=== PATIENT | female | born 1965 | race Caucasian/White ===

== ENCOUNTER 2023-07-23 19:37 | Emergency (ER) | payer OTHER, SELFPAY ==
[2023-07-23 19:43] VITALS: BP 164/104
[2023-07-23 20:22] LABS: Glucose - Point of Care 466 mg/dl (70-99)
[2023-07-23] MEDS: NSS 1000 IV ×3 (20:25→23:29)
[2023-07-23 20:33] LABS: % Basophils 0.9 % (0-2); % Eosinophils 1.9 % (0-6); % Immature Granulocytes 0.4 % (0-0.5); % Lymphocytes 25.1 % (20.5-51.1); % Monocytes 7.5 % (1.7-9.3); % Neutrophils 64.2 % (42.2-75.2); Absolute Basophils 0.1 10^3/uL (0-0.2); Absolute Eosinophils 0.2 10^3/uL (0-0.7); Absolute Lymphocytes 2.2 10^3/uL (1.2-3.4); Absolute Monocytes 0.7 10^3/uL (0.1-0.6); Absolute Neutrophils 5.7 10^3/uL (1.4-6.5); Hematocrit 42.4 % (37.0-47.0); Hemoglobin 15.2 g/dL (12.0-16.0); Mean Corp Hgb Conc. 35.8 g/dL (33.0-37.0); Mean Corpuscular Hgb 29.1 pg (27.0-31.0); Mean Corpuscular Volume 81.1 fL (81.0-99.0); Mean Platelet Volume 11.6 fL (7.4-10.4); Nucleated Red Blood Cells % 0 %; Platelet Count 332 10^3/uL (130-400); Red Blood Cell Count 5.23 10^6/uL (4.20-5.40); Red Cell Dist. Width 12.9 % (11.5-14.5); Venous Blood Gas B.E. -2.3 mmol/L (-4 to +4); Venous Blood Gas HCO3 22.5 mmol/L (22-27); Venous Blood Gas pCO2 38 mmHg (35-48); Venous Blood Gas pH 7.38 (7.32-7.43); Venous Blood Gas pO2 85 mmHg (30-50); White Blood Cell Count 8.9 10^3/uL (4.8-10.8)
[2023-07-23 20:50] LABS: ALT (SGPT) 33 U/L (0-35); AST (SGOT) 26 U/L (14-36); Albumin 4.9 g/dl (3.5-5.0); Alkaline Phosphatase 113 U/L (38-126); Blood Urea Nitrogen 11 mg/dl (7-17); Calcium 9.7 mg/dl (8.4-10.2); Carbon Dioxide 19 mmol/L (22-30); Chloride 95 mmol/L (98-107); Glucose 492 mg/dl (70-99); Magnesium 1.7 mg/dl (1.6-2.3); Potassium 3.7 mmol/L (3.5-5.1); Sodium 128 mmol/L (135-145); Total Bilirubin 0.8 mg/dl (0.2-1.3); Total Protein 7.7 g/dl (6.3-8.2); eGFR > 60.00
[2023-07-23 20:56] LABS: B-Hydroxybutyrate 3.37 mmol/L (0.02-0.27)
[2023-07-23] MEDS: NOVOLOG vial 5 UNITS SC (21:19)
[2023-07-23 21:56] VITALS: BP 151/76
--- NOTE | 2023-07-23 22:15 | ED.GENMED ---
Addendum entered and electronically signed by Aydin Keith MD 07/26/23 08:49:
Called to follow-up with patient: discussed results including normal C-peptide, significantly elevated hemoglobin A1c. She has already followed up with primary doctor and has follow-up scheduled with endocrinology. Her sugars are still running
high, was prescribed Lantus by PCP which she is starting. Strong follow-up plan in place. All questions answered.
Original Note:
History of Present Illness
General
Chief Complaint: Blood Sugar Problem
Source: patient
Exam Limitations: none
Time Seen by Provider: 07/23/23 20:05
Nursing documentation reviewed up to this point in time: agreed with
Travel History
Have you had any contact with someone who has COVID-19?: Yes
Comment: patient
Do you have any symptoms of coronavirus? Fever > 100 degrees, chills, cough, shortness of breath, sore throat, loss of taste or smell, muscle aches, or headache?: No
History of Present Illness
History of Present Illness:
58-year-old female with a history of hypertension, GERD, hypothyroidism who presents to the emergency room for polyuria, polydipsia, found to have new onset diabetes by PCP today. 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 She says that for the past
few weeks she has had polyuria and polydipsia. She has had occasional palpitations. She has been trying to drink plenty of fluids but today finally went to see her primary doctor to be evaluated for this. She had outpatient lab work that showed a
blood glucose greater than 500. She was prescribed metformin 500 mg and took one dose earlier today and she was given a glucometer. She checked her blood glucose and it seemed to be moving the right direction after metformin she says it had
decreased to the 300s however after she ate this evening and once again shot up to greater than 500 and so she came to the emergency room to be assessed. Aside from polyuria polydipsia she did have some nausea and episodes of vomiting today
although this seems to resolve. She has any abdominal pain. She denies any other complaints today. She denies any known history of diabetes.
Past History
Past History
ED Past Medical History: HTN, Hypothyroidism and Psychiatric
ED Past Surgical History: Urological and Other (Hernia repair at age 2)
Social History
Tobacco: Non-smoker
Alcohol: Occasional
Drug: None
Personal:
Living: with family
Employment: Employed ( ICU)
Family History
Family History: Other (Noncontributory)
Review of Systems
Review of Systems
All Other Systems: ROS reviewed and negative except as documented in HPI and ROS
Constitutional: Reports fatigue; Denies fever or chills
EENT: Denies sore throat
Respiratory: Denies cough or trouble breathing
Cardiac: Reports palpitations; Denies chest pain or diaphoresis
ABD/GI: Reports nausea and vomiting; Denies abdominal pain
: Denies flank pain
Musculoskeletal: Denies neck pain or back pain
Neurological: Denies dizzy, headache, weakness or numbness
Endocrine: Reports polyuria and polydipsia
Phy Exam
Physical Exam
Physical Exam:
General: Awake, alert, oriented x3; no acute distress
Head: Normocephalic, atraumatic
Eyes: Conjunctiva normal, sclera anicteric
Throat: Airway intact, slightly dry mucous membranes
Neck: Trachea midline, supple without meningismus
Lungs: Clear to auscultation bilaterally, no wheezing, rales, rhonchi
Heart: Tachycardia with regular rhythm, no murmurs, gallops, or rubs
Abd: Soft, non distended, nontender
Neuro: Cranial nerves grossly intact, speech fluid
Skin: no rash
Extremities: No edema in extremities, warm and well-perfused
Scores
Heart Failure Risk
Heart Failure Risk Score: Not Applicable
Heart Score for Chest Pain Patients
STEMI patient?: Not applicable
Withdrawal Assessment of Alcohol
Withdrawal Assessment Completed?: Not applicable
Course
Orders/Labs/Results
Orders:
Orders
07/23/23 20:09
Bedside Glucose- Treatment ONCE
0.9% Sodium Chloride 1000 ml [Nss] 1,000 ml IV BOLUS
07/23/23 20:24
Acetone [B-Hydroxybutyrate] Urgent
Complete Blood Count/With Diff Urgent
Comprehensive Metabolic Panel Urgent
Glycohemoglobin (HgbA1c) Urgent
Magnesium Urgent
Venous Blood Gas Urgent
%Oxygen/Room Air: 98
07/23/23 21:04
0.9% Sodium Chloride 1000 ml [Nss] 1,000 ml IV BOLUS
07/23/23 21:09
Add On- LAB Urgent
Tests Added?: [id number]
Insulin Aspart [NOVOLOG vial] 5 units SC NOW STA
07/23/23 21:55
Urinalysis Reflex To Culture Urgent
Date Specimen was Collected: 07/23/23
Time Specimen was Collected: 20:24
07/23/23 23:10
C-Peptide [S] Urgent
Comprehensive Metabolic Panel Urgent
07/23/23 23:25
0.9% Sodium Chloride 1000 ml [Nss] 1,000 ml IV BOLUS
07/23/23 23:57
Potassium Chloride [KCl] 40 meq PO NOW STA
Abnormal Lab Results
07/23/23 07/23/23 07/23/23
20:11 20:24 23:10
MPV 11.6 H fL
(7.4-10.4)
Absolute Monos (auto) 0.7 H 10^3/uL
(0.1-0.6)
VBG pO2 85 H mmHg
(30-50)
Sodium 128 L mmol/L 131 L mmol/L
(135-145) (135-145)
Potassium 3.3 L mmol/L
(3.5-5.1)
Chloride 95 L mmol/L
(98-107)
Carbon Dioxide 19 L mmol/L 20 L mmol/L
(22-30) (22-30)
Creatinine 0.5 L mg/dL
(0.6-1.0)
Glucose 492 H* mg/dl 313 H mg/dl
() (70-99)
B-Hydroxybutyrate 3.37 H mmol/L
(0.02-0.27)
POC Glucose 466 H* mg/dl
()
07/23/23
23:21
MPV
Absolute Monos (auto)
VBG pO2
Sodium
Potassium
Chloride
Carbon Dioxide
Creatinine
Glucose
B-Hydroxybutyrate
POC Glucose 310 H mg/dl
()
07/23/23 20:24
07/23/23 23:10
Vital Signs
Initial and Last Documented VS:
Initial Vital Signs
Temp Pulse Resp BP Pulse Ox
36.7 C 113 24 164/104 98
07/23/23 19:43 07/23/23 19:43 07/23/23 19:43 07/23/23 19:43 07/23/23 19:43
Last Documented Vital Signs
Temp Pulse Resp BP Pulse Ox
36.7 C 73 16 143/86 96
07/23/23 19:43 07/23/23 23:15 07/23/23 23:15 07/23/23 23:15 07/23/23 23:15
MDM/Problems Addressed
Differential Diagnosis Includes:
Diabetes, DKA, HHNK
MDM/Problems Addressed:
58-year-old female presents for evaluation of polyuria and polydipsia, found to have new onset diabetes as an outpatient. She did have some nausea and vomiting earlier today this resolved. Hypertensive and tachycardic here with mild tachypnea.
Rest of vitals normal. Accu-Chek greater than [address] Plan to place an IV check labs including a CBC and a CMP, beta hydroxybutyrate, VBG. Will check a urinalysis. Will start some IV fluids. Will monitor closely reassess at the above.
Labs reviewed: CBC shows no clinically significant abnormalities. pH normal on VBG. CMP shows hyperglycemia of 492 with marginal acidosis with a CO2 of 19 and anion gap of 14. Potassium 3.7. Beta hydroxybutyrate was elevated at 3.37. Urinalysis
pending. Patient received 1 L of IV fluid will provide additional liter. Call placed to endocrinology to discuss. Patient with marginal anion gap acidosis. Patient is very well-educated, is ICU nurse here�patient's strong preference is to try and
be discharged home after ED treatment. Endocrinology recommending additional IV fluids can treat with insulin here and repeat labs if she is improving can try and discharge to continue metformin and add glipizide extended release at 5 mg daily to
start but she will need very close outpatient follow-up. If labs not improving will need admission for continued treatment.
Repeat CMP after 2 L of fluid and subcutaneous insulin patient has improving metabolic acidosis with a bicarb of 20, no anion gap�calculate gap at 9. Blood glucose improving to 313. Her potassium did come down with insulin treatment now at 3.3
will provide p.o. replacement. I had a long discussion with the patient�she does not wish to stay in the hospital. At this point do not suspect that she is in DKA and she has responded to treatment here. She feels well after fluids and has no
symptoms at present. She feels very comfortable with checking her sugar at home and assured me she would not plenty of fluids and she will call to schedule follow-up with her primary doctor and endocrinology tomorrow. She does not feel that she
needs further diabetic education on an inpatient setting. Patient is very reliable and there is a strong follow-up plan in place I think this is a reasonable decision. Using shared decision making we will discharge on oral antihyperglycemic
medications with instructions to regularly check her blood sugar, drink plenty of fluids and follow-up with endocrinology within the next few days. We did speak about return precautions including if her sugars are once again going very high. All
questions answered.
Chronic conditions affecting care:
Obesity
Acute Exacerbation and/or Progression of Chronic Illness:
Acutely hypertensive
Acute Exacerbation and/or Progression of Chronic Illness: HTN
*Pulse Oximetry
Patient hypoxic: no
*Critical Care Note
Total Time (30-74mins, 75-104mins- exclusive of procedures): Not Applicable
Data Reviewed
Source: patient
Patient Management
Social determinants of health affecting care: Strong social support and Other (Patient is an RN with strong medical literacy)
Discussion with other providers: Staff Occupational Therapist (Discussed with endocrinology)
Escalation/DeEscalation of care consider admission/obs:
Offered admission�shared decision making opted for discharge with close outpatient follow-up with
ED Attending Note
-
Portions of this chart may have been created with voice recognition software.� Occasional wrong word or��sound alike� substitutions may have occurred due to the inherent limitations of voice recognition software.
Discharge Plan
Departure
Patient Disposition: Home (Routine Discharge)
Date of Disposition: 07/24/23
Time of Disposition: 00:06
Patient with high blood pressure during this ER visit?: Yes
Discharge Problem:
Hyperglycemia, Diabetes mellitus, Hypertension
Instructions: Type 2 Diabetes (DC), The ABCs of diabetes, High Blood Sugar, Adult ED, BLOOD PRESSURE
Prescriptions:
New
metformin 500 mg tablet
500 mg PO BID Qty: 60 0RF
glipizide 5 mg tablet extended release 24hr
5 mg PO DAILY Qty: 30 0RF
No Action
Hydrochlorothiazide Tablet
25 mg PO DAILY
Prozac Tablet
20 mg PO DAILY
Synthroid Tablet
225 mcg PO DAILY
ketorolac 10 MG tablet
10 mg PO Q6 Qty: 20 0RF
tamsulosin 0.4 MG capsule
0.4 mg PO DAILY Qty: 30 1RF
oxycodone-acetaminophen 5 MG/325 MG tablet
1 tab PO Q4HPRN PRN (Reason: severe pain) Qty: 20 0RF
oxycodone-acetaminophen 5 MG/325 MG tablet
1 tab PO Q4HPRN PRN (Reason: pain) Qty: 12 0RF
ondansetron 4 MG tablet,disintegrating
4 mg PO TIDPRN PRN (Reason: nausea/vomiting) Qty: 10 0RF
ketorolac 10 MG tablet
10 mg PO Q6HPRN PRN (Reason: pain) Qty: 20 0RF
tamsulosin [Flomax] 0.4 MG capsule
0.4 mg PO HS Qty: 10 0RF
Referrals:
Lena Johnson MD [Consulting Staff] - Call in 1-3 days for appt (Call tomorrow to schedule an appointment as discussed)
Virgen Jensen MD [Family Provider] - Follow up in 2-3 days
Activity Restrictions/Additional Instructions:
Thank you for visiting the Emergency Department at [facility].
1. Please schedule a follow up appointment as directed. Call first thing tomorrow morning to make an appointment.
2. If indicated, please take your medications as instructed and indicated on discharge paperwork.
3. If any of your symptoms do not improve, or persist, or become more severe within 6-12 hours, please return to the emergency department for further care.
4. Please return to the emergency department if you develop a headache, neck pain/stiffness, fever greater than 100.4F, chest pain, shortness of breath, persistent nausea, vomiting, slurred speech, difficulty walking, numbness/tingling, weakness,
signs of infection or any other symptoms that are worrisome to you.
Please call [phone] if you have any questions.
Interventions
Interventions:
*General Assessment Last Done: 07/23/23 19:43
*Neglect/Abuse Screening Last Done: 07/23/23 19:43
ED- Fall Risk Assessment Last Done: 07/23/23 19:43
*ED COVID-19 Vaccine History Last Done: 07/23/23 19:43
[2023-07-23 23:15] VITALS: BP 143/86
[2023-07-23 23:29] LABS: Glucose - Point of Care 310 mg/dl (70-99)
[2023-07-23 23:52] LABS: ALT (SGPT) 30 U/L (0-35); AST (SGOT) 32 U/L (14-36); Albumin 4.2 g/dl (3.5-5.0); Alkaline Phosphatase 91 U/L (38-126); Blood Urea Nitrogen 9 mg/dl (7-17); Calcium 8.7 mg/dl (8.4-10.2); Carbon Dioxide 20 mmol/L (22-30); Chloride 102 mmol/L (98-107); Glucose 313 mg/dl (70-99); Potassium 3.3 mmol/L (3.5-5.1); Sodium 131 mmol/L (135-145); Total Bilirubin 0.5 mg/dl (0.2-1.3); Total Protein 6.8 g/dl (6.3-8.2); eGFR > 60.00
[2023-07-24] MEDS: KCL 40 MEQ PO (00:35)
[2023-07-24 00:37] VITALS: BP 131/81
[2023-07-24] MEDS: GLUCOTROL XL (EXTENDED RELEASE) 5 MG PO (00:44)
[2023-07-24 01:00] LABS: Urine Albumin Negative (Neg - Trace); Urine Bilirubin Negative (Negative); Urine Character Clear (Clear); Urine Color Yellow; Urine Glucose 3+ (Negative); Urine Ketone 3+ (Negative); Urine Leukocyte Negative (Negative); Urine Nitrite Negative (Negative); Urine Occult Blood Negative (Negative); Urine Urobilinogen Negative (Neg - 1+)
[2023-07-24 08:32] LABS: Glycohemoglobin (HgbA1c) 13.7 % (4.0-5.6)
[2023-07-26 01:26] LABS: C-Peptide 0.9 ng/mL (0.5-3.3)
== END 2023-07-24 00:45 | disposition home or self-care (01) ==
LOC: EMR 19:37
PROVIDERS: EMERGENCY PHYSICIAN Emergency Medicine; FAMILY PHYSICIAN Internal Medicine
DX: E11.65 Type 2 diabetes mellitus with hyperglycemia (principal); I10 Essential (primary) hypertension
CPT/HCPCS: 99284; 96360; 96361 ×2; 96372; 80053; 81003; 82010; 82805; 82962; 83036; 83735; 84681; 85025

== ENCOUNTER → 2024-05-22 19:25 | Outpatient (REF) | payer OTHER, SELFPAY | LOC: WDC 19:25 | PROVIDERS: ATTENDING PHYSICIAN Obstetrics & Gynecology Gynecology; FAMILY PHYSICIAN Internal Medicine | DX: Z12.31 Encounter for screening mammogram for malignant neoplasm of breast (principal) | CPT/HCPCS: 77063; 77067 ==

== ENCOUNTER → 2024-06-05 07:03 | Outpatient (REF) | payer OTHER, SELFPAY | LOC: RCS 07:03 | PROVIDERS: ATTENDING PHYSICIAN Internal Medicine | DX: R01.1 Cardiac murmur, unspecified (principal); Z13.820 Encounter for screening for osteoporosis | CPT/HCPCS: 77080; 93306 ==

== ENCOUNTER → 2024-10-31 07:30 | Outpatient (REF) | payer BC, SELFPAY | LOC: EMG 07:30 | PROVIDERS: ATTENDING PHYSICIAN Orthopaedic Surgery; FAMILY PHYSICIAN Internal Medicine | DX: R20.0 Anesthesia of skin (principal) | CPT/HCPCS: 95886; 95911 ==

== ENCOUNTER 2024-11-18 05:52 | Day surgery (SDC) | payer BC, SELFPAY ==
[2024-11-14 08:59] LABS: Hematocrit 39.9 % (37.0-47.0); Hemoglobin 13.0 g/dL (12.0-16.0); Mean Corp Hgb Conc. 32.6 g/dL (33.0-37.0); Mean Corpuscular Volume 86.7 fL (81.0-99.0); Nucleated Red Blood Cells % 0 %; Platelet Count 285 10^3/uL (130-400); Red Cell Dist. Width 13.6 % (11.5-14.5)
[2024-11-14 09:23] LABS: Blood Urea Nitrogen 15 mg/dl (7-17); Calcium 9.3 mg/dl (8.4-10.2); Carbon Dioxide 28 mmol/L (22-30); Chloride 105 mmol/L (98-107); Glucose 159 mg/dl (70-99); Potassium 4.4 mmol/L (3.5-5.1); Sodium 140 mmol/L (135-145); eGFR > 60.00
[2024-11-18 06:15] VITALS: BP 145/85
[2024-11-18 06:22] LABS: Glucose - Point of Care 154 mg/dl (70-99)
[2024-11-18 06:27] VITALS: BMI 40.8
[2024-11-18 07:40] VITALS: BP 139/77
[2024-11-18 07:55] VITALS: BP 144/77
== END 2024-11-18 08:00 | disposition home or self-care (01) ==
LOC: SDS 05:52
PROVIDERS: ATTENDING PHYSICIAN Orthopaedic Surgery; FAMILY PHYSICIAN Internal Medicine
DX: G56.01 Carpal tunnel syndrome, right upper limb (principal)
CPT/HCPCS: 64721; 36415; 80048; 82962; 85025; 93005

== ENCOUNTER 2024-12-19 05:59 | Day surgery (SDC) | payer BC, SELFPAY ==
[2024-11-14 13:49] VITALS: BMI 41.3
[2024-12-19 06:59] VITALS: BP 173/92
[2024-12-19 07:07] VITALS: BMI 41.7
[2024-12-19 07:19] LABS: Glucose - Point of Care 175 mg/dl (70-99)
[2024-12-19 08:50] VITALS: BP 125/78
[2024-12-19 09:05] VITALS: BP 128/83
[2024-12-19 09:10] VITALS: BP 127/83
== END 2024-12-19 09:26 | disposition home or self-care (01) ==
LOC: SDS 05:59
PROVIDERS: ATTENDING PHYSICIAN Internal Medicine Gastroenterology
DX: Z12.11 Encounter for screening for malignant neoplasm of colon (principal); D12.0 Benign neoplasm of cecum; D12.3 Benign neoplasm of transverse colon; K64.8 Other hemorrhoids; K21.9 Gastro-esophageal reflux disease without esophagitis; K31.89 Other diseases of stomach and duodenum
CPT/HCPCS: 45385; 43239; 82962; 88305; 88342

== ENCOUNTER → 2025-02-05 06:20 | Outpatient (REF) | payer BC, SELFPAY ==
[2025-02-05 07:32] LABS: ALT (SGPT) 18 U/L (0-35); AST (SGOT) 17 U/L (14-36); Albumin 4.5 g/dl (3.5-5.0); Alkaline Phosphatase 70 U/L (38-126); Blood Urea Nitrogen 11 mg/dl (7-17); Calcium 9.4 mg/dl (8.4-10.2); Carbon Dioxide 30 mmol/L (22-30); Chloride 104 mmol/L (98-107); Glucose 153 mg/dl (70-99); Potassium 4.1 mmol/L (3.5-5.1); Sodium 140 mmol/L (135-145); Total Protein 7.2 g/dl (6.3-8.2); eGFR > 60.00
[2025-02-05 08:01] LABS: TSH 2.48 uIU/ml (0.47-4.68)
[2025-02-05 09:06] LABS: Glycohemoglobin (HgbA1c) 7.4 % (4.0-5.6)
== END ==
LOC: REG 06:20
PROVIDERS: ATTENDING PHYSICIAN Internal Medicine Endocrinology, Diabetes & Metabolism; FAMILY PHYSICIAN Internal Medicine
DX: E11.65 Type 2 diabetes mellitus with hyperglycemia (principal); E06.3 Autoimmune thyroiditis
CPT/HCPCS: 36415; 80053; 83036; 84443